=== PATIENT | male | born 1960 | race Caucasian/White ===

== ENCOUNTER 2020-03-16 17:24 | Inpatient (IN) | payer MEDICARE, MEDICAID ==
[2020-03-16] MEDS ORDERED: Ondansetron ODT 4 MG TAB PO PRN ×2 (18:30→18:34)
[2020-03-16] MEDS ORDERED: Acetaminophen 325 MG TAB PO PRN (18:30)
[2020-03-16] MEDS ORDERED: Polyethylene Glycol 3350 17 GM Packet PO PRN (18:34)
[2020-03-16] MEDS ORDERED: Guaifenesin DM 100-10/5 ML UDCUP PO PRN (18:34)
[2020-03-16] MEDS ORDERED: traMADol HCl 50 MG TAB PO PRN ×2 (18:34)
[2020-03-16] MEDS ORDERED: Loratadine 10 MG TAB PO PRN (18:34)
[2020-03-16] MEDS ORDERED: ACETAMINOPHEN 650 MG PO PRN (18:34)
[2020-03-16] MEDS: Artificial Tear Sol 15 ML BOT EA EYE SCH (21:10)
[2020-03-16] MEDS: risperiDONE 0.5 MG TAB PO SCH (21:11)
[2020-03-16] MEDS: metFORMIN 500 MG TAB PO SCH (21:11)
[2020-03-16] MEDS: Atorvastatin Calcium 10 MG TAB PO SCH (21:11)
[2020-03-16] MEDS: Docusate 100 MG CAP PO SCH (21:11)
[2020-03-16] MEDS: Famotidine 20 MG TAB PO SCH (21:11)
[2020-03-16] MEDS: Metoprolol Tartrate 25 MG TAB PO SCH (21:12)
[2020-03-16] MEDS: ACETAMINOPHEN 650 MG PO SCH (21:14)
[2020-03-17 05:43] LABS: #Basophils 0.1 thou/uL (0.0-0.2); #Eosinphils 0.2 thou/uL (0.0-0.7); #Lymphocytes 1.5 thou/uL (1.20-3.40); #Monocytes 0.6 thou/uL (0.11-0.59); #Neutrophils 3.3 thou/uL (1.40-6.50); %Basophils 0.9 % (0.0-1.0); %Eosinophils 2.8 % (0.0-10.0); %Monocytes 10.4 % (0.0-10.0); %Neutrophils 58.9 % (42.0-75.0); Hemoglobin 14.7 g/dL (14.0-18.0); Mean Corpuscular HGB CONC 30.8 g/dL (32.0-36.0); Mean Corpuscular Hemoglobin 27.5 pg (27.0-31.0); Mean Corpuscular Volume 89.4 fL (78.0-98.0); Mean Platelet Volume 7.7 fL (7.4-10.4); Platelet Count 238 thou/uL (130-400); RBC Distribution Width 14.5 % (11.5-14.5); Red Blood Cell (RBC) Count 5.34 mill/uL (4.70-6.10); White Blood Cell (WBC) Count 5.6 thou/uL (4.8-10.8)
[2020-03-17 06:00] LABS: ALT (SGPT) 15 U/L (8-55); AST (SGOT) 17 U/L (5-34); Albumin 3.5 g/dL (3.4-4.8); Alkaline Phosphatase 102 U/L (40-110); Anion Gap 10 mmol/L (10-20); BUN (Urea Nitrogen) 18 mg/dL (8.4-25.7); Bilirubin, Total 0.3 mg/dL (0.2-1.2); Calc. Creatinine Clearance 128 mL/min (70-130); Calcium 8.2 mg/dL (7.8-10.44); Carbon Dioxide 24 mmol/L (23-31); Chloride 109 mmol/L (98-107); Estimated GFR-MDRD Greater than 90; Globulin 2.8 g/dL (2.4-3.5); Glucose 88 mg/dL (80-115); Potassium 4.2 mmol/L (3.5-5.1); Protein, Total 6.3 g/dL (5.8-8.1); Sodium 139 mmol/L (136-145)
[2020-03-17] MEDS: Enoxaparin Sodium 30 MG/0.3 ML SYRINGE SC SCH (09:00)
[2020-03-17] MEDS: Aspirin 81 mg Enteric Coated Tablet PO SCH (09:00)
[2020-03-17] MEDS: Calcium Carbonate 600 MG + Vit D TAB PO SCH (09:00)
[2020-03-17] MEDS: Artificial Tear Sol 15 ML BOT EA EYE SCH ×4 (09:00→20:53)
[2020-03-17] MEDS: Oxybutynin 5 MG TAB PO SCH (09:00)
[2020-03-17] MEDS: Docusate 100 MG CAP PO SCH ×2 (09:00→20:53)
[2020-03-17] MEDS: metFORMIN 500 MG TAB PO SCH ×2 (09:00→20:52)
[2020-03-17] MEDS: Famotidine 20 MG TAB PO SCH ×2 (09:00→20:51)
[2020-03-17] MEDS: Fish Oil 1,000 MG CAP PO SCH (09:00)
[2020-03-17] MEDS: Metoprolol Tartrate 25 MG TAB PO SCH ×2 (09:00→20:52)
[2020-03-17] MEDS: ACETAMINOPHEN 650 MG PO SCH ×2 (11:33→20:53)
[2020-03-17] MEDS: Lactobacillus Rhamnosus (CULTURELLE) packet PO SCH (11:37)
[2020-03-17 13:37] LABS: Bilirubin Negative (Negative); Blood, Urine Trace (Negative); Clarity Clear (Clear); Glucose, Urine (Dipstick) Negative (Negative); Ketone, Urine Negative (Negative); Leukocyte Small (Negative); Nitrite Positive (Negative); Protein, Urine (Dipstick) Negative (Neg-Trace); Specific Gravity, Urine 1.015 (1.005-1.030); Urobilinogen 0.2 mg/dL (Less than 2); pH, Urine 8.5 (5.0-9.0)
[2020-03-17 13:38] LABS: Bacteria/HPF Rare-Few HPF (None Seen); RBC/HPF 0-3 HPF (0-3); Squamous Epithelial 0-3 HPF (0-3)
[2020-03-17] MEDS: risperiDONE 0.5 MG TAB PO SCH (20:51)
[2020-03-17] MEDS: Atorvastatin Calcium 10 MG TAB PO SCH (20:53)
[2020-03-18] MEDS: Enoxaparin Sodium 30 MG/0.3 ML SYRINGE SC SCH (09:24)
[2020-03-18] MEDS: Famotidine 20 MG TAB PO SCH ×2 (09:24→20:40)
[2020-03-18] MEDS: Fish Oil 1,000 MG CAP PO SCH (09:24)
[2020-03-18] MEDS: Docusate 100 MG CAP PO SCH ×2 (09:25→21:35)
[2020-03-18] MEDS: Metoprolol Tartrate 25 MG TAB PO SCH ×2 (09:25→20:40)
[2020-03-18] MEDS: Calcium Carbonate 600 MG + Vit D TAB PO SCH (09:25)
[2020-03-18] MEDS: Aspirin 81 mg Enteric Coated Tablet PO SCH (09:25)
[2020-03-18] MEDS: Oxybutynin 5 MG TAB PO SCH (09:25)
[2020-03-18] MEDS: metFORMIN 500 MG TAB PO SCH ×2 (09:26→20:40)
[2020-03-18] MEDS: Artificial Tear Sol 15 ML BOT EA EYE SCH ×4 (09:27→20:41)
[2020-03-18] MEDS: Lactobacillus Rhamnosus (CULTURELLE) packet PO SCH (09:27)
[2020-03-18] MEDS: ACETAMINOPHEN 650 MG PO SCH (11:02)
[2020-03-18] MEDS ORDERED: Lactinex Tablet PO SCH (12:00)
--- NOTE | 2020-03-18 18:54 | PRG ---
DATE OF SERVICE: 03/17/2020 SUBJECTIVE: The patient feels well with no complaints, shortness of breath, chest pain, fever, chills. Nurses have no concerns either. OBJECTIVE: LUNGS: Clear. CARDIAC: Regular rhythm. ABDOMEN: Soft and nontender. NEUROLOGIC: Some spasticity. VITAL SIGNS: Temperature is 99.7, pulse goes from 88 to 124, respirations 20, O2 saturations 95% on room air. ASSESSMENT: 1. COVID-19 infection. No evidence of hypoxemia, respiratory distress. 2. Tachycardia, possibly due to agitation and anger. 3. Stable traumatic brain injury. PLAN: Continue to monitor closely in isolation. Obtain laboratories, which showed him to have white count of 5600, hematocrit 47, hemoglobin 14. Sodium 139, potassium 4.2, chloride 109, bicarb 24, BUN 18, creatinine 0.85, glucose 88, calcium 8.2, total bilirubin 0.3. Job ID: [id number]
--- NOTE | 2020-03-18 18:54 | PRG ---
DATE OF SERVICE: SUBJECTIVE: The patient is lying in the bed. No complaints. States the nurses are treating well and he feels fine. The nurses state, however, he did have some coughing today after eating and he was seen by Speech, which felt like he could only need to have a restriction on his diet to chopped with extra sauce and gravy and no straws with nectar thickened liquids. OBJECTIVE: LUNGS: Clear. CARDIAC: Shows regular rhythm. ABDOMEN: Soft, nontender. ASSESSMENT: 1. Stable COVID-19 infection. No evidence of pneumonia. 2. Stable traumatic brain injury with need for chopped meals with nectar thickened liquids, but with no evidence of aspiration. PLAN: 1. Continue PT and OT. 2. Continue to monitor in isolation for COVID-19 infection. Job ID: [id number]
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
[2020-03-18] MEDS: Acetaminophen 500 MG TAB PO SCH (20:39)
[2020-03-18] MEDS: Atorvastatin Calcium 10 MG TAB PO SCH (20:40)
[2020-03-18] MEDS: risperiDONE 0.5 MG TAB PO SCH (20:40)
[2020-03-19] MEDS: Acetaminophen 500 MG TAB PO SCH ×2 (08:46→20:52)
[2020-03-19] MEDS: Calcium Carbonate 600 MG + Vit D TAB PO SCH (08:47)
[2020-03-19] MEDS: Artificial Tear Sol 15 ML BOT EA EYE SCH ×4 (08:47→20:53)
[2020-03-19] MEDS: Aspirin 81 mg Enteric Coated Tablet PO SCH (08:47)
[2020-03-19] MEDS: Docusate 100 MG CAP PO SCH ×2 (08:48→20:52)
[2020-03-19] MEDS: Fish Oil 1,000 MG CAP PO SCH (08:48)
[2020-03-19] MEDS: Lactinex Tablet PO SCH (08:48)
[2020-03-19] MEDS: Famotidine 20 MG TAB PO SCH ×2 (08:48→20:51)
[2020-03-19] MEDS: Enoxaparin Sodium 30 MG/0.3 ML SYRINGE SC SCH (08:48)
[2020-03-19] MEDS: metFORMIN 500 MG TAB PO SCH ×2 (08:49→20:52)
[2020-03-19] MEDS: Metoprolol Tartrate 25 MG TAB PO SCH ×2 (08:49→20:51)
[2020-03-19] MEDS: Oxybutynin 5 MG TAB PO SCH (08:50)
[2020-03-19] MEDS: risperiDONE 0.5 MG TAB PO SCH (20:52)
[2020-03-19] MEDS: Atorvastatin Calcium 10 MG TAB PO SCH (20:53)
[2020-03-20 06:04] VITALS: BMI 33.1
[2020-03-20] MEDS: Acetaminophen 500 MG TAB PO SCH ×2 (07:55→21:02)
[2020-03-20] MEDS: Artificial Tear Sol 15 ML BOT EA EYE SCH ×4 (07:56→21:05)
[2020-03-20] MEDS: Calcium Carbonate 600 MG + Vit D TAB PO SCH (07:56)
[2020-03-20] MEDS: Aspirin 81 mg Enteric Coated Tablet PO SCH (07:56)
[2020-03-20] MEDS: Docusate 100 MG CAP PO SCH ×2 (07:56→21:02)
[2020-03-20] MEDS: Enoxaparin Sodium 30 MG/0.3 ML SYRINGE SC SCH (07:56)
[2020-03-20] MEDS: Lactinex Tablet PO SCH (07:57)
[2020-03-20] MEDS: metFORMIN 500 MG TAB PO SCH ×2 (07:57→21:04)
[2020-03-20] MEDS: Fish Oil 1,000 MG CAP PO SCH (07:57)
[2020-03-20] MEDS: Famotidine 20 MG TAB PO SCH ×2 (07:57→21:04)
[2020-03-20] MEDS: Metoprolol Tartrate 25 MG TAB PO SCH ×2 (07:58→21:03)
[2020-03-20] MEDS: Oxybutynin 5 MG TAB PO SCH (07:58)
--- NOTE | 2020-03-20 09:40 | PRG ---
DATE OF SERVICE: 03/20/2020 SUBJECTIVE: The patient lying in bed, no acute distress. No concerns or complaints from the patient or nursing staff. Doing well. Participating well in therapy. OBJECTIVE: VITAL SIGNS: Temperature ranged 97.1 and 98.7, pulse 92 to 81, respiratory rate 18 to 20, O2 saturation is 95% on room air, and blood pressure ranged 134/74 to 148/70. LABORATORY DATA: No new labs. ASSESSMENT: 1. Stable COVID-19 infection. No evidence of pneumonia. No new symptoms. 2. Stable traumatic brain injury. PLAN: 1. Continue PT and OT services. 2. Continue to monitor isolation for COVID-19 infection. Job ID: [id number]
[2020-03-20] MEDS: Atorvastatin Calcium 10 MG TAB PO SCH (21:04)
[2020-03-20] MEDS: risperiDONE 0.5 MG TAB PO SCH (21:05)
[2020-03-21] MEDS: Enoxaparin Sodium 30 MG/0.3 ML SYRINGE SC SCH (08:48)
[2020-03-21] MEDS: Artificial Tear Sol 15 ML BOT EA EYE SCH ×4 (08:49→21:55)
[2020-03-21] MEDS: Metoprolol Tartrate 25 MG TAB PO SCH ×2 (08:49→21:56)
[2020-03-21] MEDS: Docusate 100 MG CAP PO SCH ×2 (08:49→21:56)
[2020-03-21] MEDS: Calcium Carbonate 600 MG + Vit D TAB PO SCH (08:49)
[2020-03-21] MEDS: metFORMIN 500 MG TAB PO SCH ×2 (08:49→21:56)
[2020-03-21] MEDS: Famotidine 20 MG TAB PO SCH ×2 (08:49→21:57)
[2020-03-21] MEDS: Fish Oil 1,000 MG CAP PO SCH (08:50)
[2020-03-21] MEDS: Lactinex Tablet PO SCH (08:50)
[2020-03-21] MEDS: Oxybutynin 5 MG TAB PO SCH (08:50)
[2020-03-21] MEDS: Acetaminophen 500 MG TAB PO SCH ×2 (08:50→21:54)
[2020-03-21] MEDS: Aspirin 81 mg Enteric Coated Tablet PO SCH (08:50)
[2020-03-21] MEDS: Atorvastatin Calcium 10 MG TAB PO SCH (21:55)
[2020-03-21] MEDS: risperiDONE 0.5 MG TAB PO SCH (21:57)
--- NOTE | 2020-03-22 06:16 | PRG ---
DATE OF SERVICE: 03/21/2020 SUBJECTIVE: The patient feels well, lying in the bed, complains of occasional agitation but cooperating well with therapy, eating well with no cough, shortness of breath, fever, or chills. The patient has had diagnosis of COVID-19 and has been isolated since March 16. OBJECTIVE: VITAL SIGNS: Show temperature is 98.2, pulse 72, respirations 20, O2 sats 93% on room air, and blood pressure is 155/69. LUNGS: Clear. CARDIAC: Shows regular rhythm. ABDOMEN: Soft and nontender. ASSESSMENT: Resolving COVID-19 infection with no evidence of pneumonia, respiratory distress in isolation until March 26. PLAN: 1. Continue isolation. 2. Continue to monitor vital signs closely. 3. Continue stress ulcer and DVT prophylaxis. 4. Continue pre-hospitalization medications. Job ID: [id number]
[2020-03-22] MEDS: Oxybutynin 5 MG TAB PO SCH (09:15)
[2020-03-22] MEDS: Metoprolol Tartrate 25 MG TAB PO SCH ×2 (09:16→21:23)
[2020-03-22] MEDS: Fish Oil 1,000 MG CAP PO SCH (09:16)
[2020-03-22] MEDS: Lactinex Tablet PO SCH (09:17)
[2020-03-22] MEDS: Docusate 100 MG CAP PO SCH ×2 (09:18→21:25)
[2020-03-22] MEDS: Famotidine 20 MG TAB PO SCH ×2 (09:18→21:23)
[2020-03-22] MEDS: Aspirin 81 mg Enteric Coated Tablet PO SCH (09:18)
[2020-03-22] MEDS: Acetaminophen 500 MG TAB PO SCH ×2 (09:18→21:24)
[2020-03-22] MEDS: Artificial Tear Sol 15 ML BOT EA EYE SCH ×4 (09:20→21:25)
[2020-03-22] MEDS: Enoxaparin Sodium 30 MG/0.3 ML SYRINGE SC SCH (09:21)
[2020-03-22] MEDS: Calcium Carbonate 600 MG + Vit D TAB PO SCH (09:21)
[2020-03-22] MEDS: metFORMIN 500 MG TAB PO SCH ×2 (09:22→21:23)
[2020-03-22] MEDS: risperiDONE 0.5 MG TAB PO SCH (21:23)
[2020-03-22] MEDS: Atorvastatin Calcium 10 MG TAB PO SCH (21:24)
--- NOTE | 2020-03-23 06:29 | PRG ---
DATE OF SERVICE: 03/22/2020 SUBJECTIVE: The patient is sitting in the bed, cooperating with therapy and nurses, in no distress. He denies cough, fever, chills. The patient has had a diagnosis of COVID-19 since March 16. OBJECTIVE: VITAL SIGNS: Shows temperature is 97.3, pulse 63, respirations 16, O2 sats on room air, blood pressure 124/60. LUNGS: Clear. CARDIAC: Shows regular rhythm. ABDOMEN: Soft and nontender. SKIN/EXTREMITIES: Displayed no edema, clubbing, or cyanosis. ASSESSMENT: 1. Resolving COVID-19 infection with isolation until March 26. 2. Status post traumatic brain injury, stable. 3. Hyperlipidemia, stable. 4. Type 2 diabetes, controlled to goal. PLAN: 1. Continue isolation. 2. Continue pre-hospitalization medications. 3. Continue to monitor for signs of pneumonia or changes from the vascular status. Job ID: [id number]
[2020-03-23] MEDS: Calcium Carbonate 600 MG + Vit D TAB PO SCH (08:36)
[2020-03-23] MEDS: Acetaminophen 500 MG TAB PO SCH ×2 (08:36→21:46)
[2020-03-23] MEDS: Docusate 100 MG CAP PO SCH ×2 (08:36→21:49)
[2020-03-23] MEDS: Aspirin 81 mg Enteric Coated Tablet PO SCH (08:36)
[2020-03-23] MEDS: Artificial Tear Sol 15 ML BOT EA EYE SCH ×4 (08:36→21:50)
[2020-03-23] MEDS: metFORMIN 500 MG TAB PO SCH ×2 (08:37→21:49)
[2020-03-23] MEDS: Famotidine 20 MG TAB PO SCH ×2 (08:37→21:49)
[2020-03-23] MEDS: Lactinex Tablet PO SCH (08:37)
[2020-03-23] MEDS: Fish Oil 1,000 MG CAP PO SCH (08:37)
[2020-03-23] MEDS: Enoxaparin Sodium 30 MG/0.3 ML SYRINGE SC SCH (08:37)
[2020-03-23] MEDS: Metoprolol Tartrate 25 MG TAB PO SCH ×2 (08:38→21:49)
[2020-03-23] MEDS: Oxybutynin 5 MG TAB PO SCH (08:38)
--- NOTE | 2020-03-23 21:04 | PRG ---
DATE OF SERVICE: 03/23/2020 SUBJECTIVE: A 59-year-old male lying in bed with no acute distress. He is cooperating with therapy. He denies any cough, fever, or chills. OBJECTIVE: VITAL SIGNS: Temperature 98.3, pulse 70 to 75, respiratory rate 20, O2 saturation is 94 on room air, and blood pressure 120/74. LUNGS: Clear to auscultation bilaterally. No wheezes or rhonchi. CARDIOVASCULAR: Regular rate and rhythm. No murmurs, gallops, or rubs. ABDOMEN: Soft, nontender to palpation. Bowel sounds positive in all four quadrants. SKIN: No edema. ASSESSMENT: 1. Resolving COVID-19 infection by isolation until March 26. 2. Status post traumatic brain injury. 3. Hyperlipidemia. 4. Type 2 diabetes mellitus. PLAN: 1. Continue isolation. 2. Continue prehospitalization medications. 3. Continue monitor for signs of pneumonia or changes in vascular status. Job ID: [id number]
[2020-03-23] MEDS: risperiDONE 0.5 MG TAB PO SCH (21:49)
[2020-03-23] MEDS: Atorvastatin Calcium 10 MG TAB PO SCH (21:50)
[2020-03-24] MEDS: Acetaminophen 500 MG TAB PO SCH ×2 (09:09→21:01)
[2020-03-24] MEDS: Artificial Tear Sol 15 ML BOT EA EYE SCH ×4 (09:10→21:01)
[2020-03-24] MEDS: Docusate 100 MG CAP PO SCH ×2 (09:10→21:01)
[2020-03-24] MEDS: Aspirin 81 mg Enteric Coated Tablet PO SCH (09:10)
[2020-03-24] MEDS: Calcium Carbonate 600 MG + Vit D TAB PO SCH (09:10)
[2020-03-24] MEDS: Enoxaparin Sodium 30 MG/0.3 ML SYRINGE SC SCH (09:11)
[2020-03-24] MEDS: Famotidine 20 MG TAB PO SCH ×2 (09:11→21:05)
[2020-03-24] MEDS: metFORMIN 500 MG TAB PO SCH ×2 (09:11→21:04)
[2020-03-24] MEDS: Fish Oil 1,000 MG CAP PO SCH (09:11)
[2020-03-24] MEDS: Lactinex Tablet PO SCH (09:11)
[2020-03-24] MEDS: Metoprolol Tartrate 25 MG TAB PO SCH ×2 (09:12→21:04)
[2020-03-24] MEDS: Oxybutynin 5 MG TAB PO SCH (09:13)
--- NOTE | 2020-03-24 16:20 | PRG ---
DATE OF SERVICE: 03/24/2020 SUBJECTIVE: Mr. Colon is doing well. Denies any complaints. No chest pain or shortness of breath. No changes in his respiratory status. Discussed with nursing. OBJECTIVE: VITAL SIGNS: He is afebrile. Heart rate 88, respirations 20, oxygen saturation 95% on room air, blood pressure 135/77. CARDIOVASCULAR SYSTEM: S1 and S2 plus. RESPIRATORY SYSTEM: Normal vesicular breath sounds. ABDOMEN: Soft and nontender. Bowel sounds heard in all quadrants. EXTREMITIES: Without cyanosis or clubbing. CENTRAL NERVOUS SYSTEM: Cognitive deficits. Generalized weakness. Otherwise, nonfocal. IMPRESSION: 1. COVID-19 positive. 2. History of traumatic brain injury with residual deficits. 3. Diabetes mellitus type 2. 4. Dyslipidemia. 5. Hypertension. 6. Possible overactive bladder. 7. Deconditioning. PLAN: 1. Continue current medications. 2. 1800-calorie heart healthy ADA diet. 3. Accu-Cheks with sliding scale coverage. 4. DVT prophylaxis with Lovenox. 5. Decubitus precautions. 6. Stress ulcer prophylaxis. 7. Monitor respiratory status. 8. Continue respiratory droplet precautions. Job ID: [id number]
[2020-03-24] MEDS: risperiDONE 0.5 MG TAB PO SCH (21:05)
[2020-03-24] MEDS: Atorvastatin Calcium 10 MG TAB PO SCH (21:05)
[2020-03-25] MEDS: Calcium Carbonate 600 MG + Vit D TAB PO SCH (08:27)
[2020-03-25] MEDS: Docusate 100 MG CAP PO SCH ×2 (08:27→20:52)
[2020-03-25] MEDS: Famotidine 20 MG TAB PO SCH ×2 (08:28→20:52)
[2020-03-25] MEDS: metFORMIN 500 MG TAB PO SCH ×2 (08:28→20:51)
[2020-03-25] MEDS: Fish Oil 1,000 MG CAP PO SCH (08:28)
[2020-03-25] MEDS: Metoprolol Tartrate 25 MG TAB PO SCH ×2 (08:28→20:52)
[2020-03-25] MEDS: Acetaminophen 500 MG TAB PO SCH ×2 (08:28→20:53)
[2020-03-25] MEDS: Aspirin 81 mg Enteric Coated Tablet PO SCH (08:28)
[2020-03-25] MEDS: Oxybutynin 5 MG TAB PO SCH (08:28)
[2020-03-25] MEDS: Artificial Tear Sol 15 ML BOT EA EYE SCH ×4 (08:29→20:59)
[2020-03-25] MEDS: Enoxaparin Sodium 30 MG/0.3 ML SYRINGE SC SCH (08:29)
[2020-03-25] MEDS: Lactinex Tablet PO SCH (08:29)
--- NOTE | 2020-03-25 15:13 | PRG ---
DATE OF SERVICE: 03/25/2020 SUBJECTIVE: Mr. Colon is doing denies any concerns. Discussed with nursing. OBJECTIVE: VITAL SIGNS: He is afebrile, heart rate 80, respirations 18, oxygen saturation 93% on room air, blood pressure 134/77. CARDIOVASCULAR SYSTEM: S1 and S2 plus. RESPIRATORY SYSTEM: Normal vesicular breath sounds. ABDOMEN: Soft, nontender. Bowel sounds heard in all quadrants. EXTREMITIES: Without cyanosis or clubbing. CENTRAL NERVOUS SYSTEM: Mild cognitive deficits, otherwise nonfocal. IMPRESSION: 1. COVID-19 positive with no symptoms. 2. History of traumatic brain injury with residual deficits. 3. Diabetes mellitus, type 2. 4. Dyslipidemia. 5. Hypertension. 6. Deconditioning, chronic. PLAN: 1. Continue current medications. 2. 1800-calorie heart healthy ADA diet. 3. Accu-Cheks with sliding scale coverage. 4. DVT prophylaxis. 5. Decubitus precautions. 6. Stress ulcer prophylaxis. 7. I anticipate discharge him back to the senior living tomorrow . Job ID: [id number]
[2020-03-25] MEDS: Atorvastatin Calcium 10 MG TAB PO SCH (20:52)
[2020-03-25] MEDS: risperiDONE 0.5 MG TAB PO SCH (20:52)
[2020-03-26] MEDS: Enoxaparin Sodium 30 MG/0.3 ML SYRINGE SC SCH (09:18)
[2020-03-26] MEDS: Artificial Tear Sol 15 ML BOT EA EYE SCH (09:18)
[2020-03-26] MEDS: Oxybutynin 5 MG TAB PO SCH (09:19)
[2020-03-26] MEDS: Aspirin 81 mg Enteric Coated Tablet PO SCH (09:19)
[2020-03-26] MEDS: Fish Oil 1,000 MG CAP PO SCH (09:19)
[2020-03-26] MEDS: Acetaminophen 500 MG TAB PO SCH (09:19)
[2020-03-26] MEDS: Docusate 100 MG CAP PO SCH (09:19)
[2020-03-26] MEDS: Calcium Carbonate 600 MG + Vit D TAB PO SCH (09:19)
[2020-03-26] MEDS: Famotidine 20 MG TAB PO SCH (09:19)
[2020-03-26] MEDS: Metoprolol Tartrate 25 MG TAB PO SCH (09:20)
[2020-03-26] MEDS: metFORMIN 500 MG TAB PO SCH (09:20)
[2020-03-26] MEDS: Lactinex Tablet PO SCH (09:20)
[2020-03-26 09:27] VITALS: BP 142/66; TEMP 98.5
--- NOTE | 2020-03-26 19:20 | DIS ---
DATE OF ADMISSION: 03/16/2020 DATE OF DISCHARGE: 03/26/2020 PRINCIPAL DIAGNOSIS: COVID-19 positive. SECONDARY DIAGNOSES: 1. Cognitive deficits due to traumatic brain injury. 2. Diabetes mellitus type 2. 3. Dyslipidemia. 4. Hypertension. 5. Deconditioning, chronic. COMPLICATIONS: None. ADVERSE REACTIONS: None. PROCEDURES: None. CONSULTATIONS: None. HOSPITAL COURSE: The patient was admitted as a transfer from [facility] due to testing COVID positive. He has remained asymptomatic. He has done well and has finished 10 days of quarantine and was deemed stable to transfer back to the retirement. DISCHARGE MEDICATIONS: 1. Tylenol 650 q.6 p.r.n. 2. Aspirin 81 mg daily. 3. Atorvastatin 10 mg daily. 4. Calcium with vitamin D3 one tablet daily. 5. Colace 100 mg b.i.d. 6. Duloxetine 20 mg daily. 7. Robitussin DM 10 mL q.6 p.r.n. 8. Lactobacillus one capsule daily. 9. Loratadine 10 mg daily. 10. Metformin half a tablet of 500 mg b.i.d. 11. Metoprolol tartrate 12.5 mg b.i.d. 12. Tarrs-3 fatty acids one capsule daily. 13. Zofran 8 mg p.o. q.4 p.r.n. 14. Oxybutynin 15 mg daily. 15. MiraLAX 17 g in 8 ounces of water daily. 16. Artificial Tears to both eyes q.i.d. 17. Risperdal 0.5 mg at bedtime. 18. Tramadol 50 to 100 mg q.6 p.r.n. DISCHARGE PHYSICAL EXAMINATION: VITAL SIGNS: On the day of discharge, he is afebrile, heart rate 62, respirations 18, oxygen saturation 94% on room air, blood pressure 142/66. CARDIOVASCULAR SYSTEM: S1-S2 plus. RESPIRATORY SYSTEM: Normal vesicular breath sounds. ABDOMEN: Soft, nontender. Bowel sounds in all quadrants. EXTREMITIES: Without cyanosis, clubbing. CENTRAL NERVOUS SYSTEM: Cognitive deficits, otherwise nonfocal. The patient will continue on 1800-calorie heart healthy ADA diet. Accu-Cheks with sliding scale coverage. Activity restrictions as before. The patient will be followed by his PCP. For full details, please see chart. TIME SPENT: Total time spent on this discharge 37 minutes. Job ID: [id number]
== END 2020-03-26 13:30 | DRG 178 ==
LOC: NAV ACUTE 17:24
PROVIDERS: ADMIT Internal Medicine; ATTEND Internal Medicine
PROC: 8E0ZXY6 Isolation (ICD-10-PCS; principal; 2020-03-16)
DX: U07.1 COVID-19 (principal); G81.10 Spastic hemiplegia affecting unspecified side; N32.81 Overactive bladder; Z90.89 Acquired absence of other organs; F41.9 Anxiety disorder, unspecified; F32.9 Major depressive disorder, single episode, unspecified; E78.5 Hyperlipidemia, unspecified; E11.9 Type 2 diabetes mellitus without complications; I10 Essential (primary) hypertension; R53.81 Other malaise; R41.89 Other symptoms and signs involving cognitive functions and awareness; Z91.013 Allergy to seafood; S06.9X0S Unspecified intracranial injury without loss of consciousness, sequela; F02.80 Dementia in other diseases classified elsewhere, unspecified severity, without behavioral disturbance, psychotic disturbance, mood disturbance, and anxiety; X58.XXXS Exposure to other specified factors, sequela; Z79.84 Long term (current) use of oral hypoglycemic drugs; Z79.82 Long term (current) use of aspirin; Z79.891 Long term (current) use of opiate analgesic
CPT/HCPCS: 80053; 81001; 85025; J1650